=== PATIENT | male | born 1985 | race Caucasian/White ===

== ENCOUNTER 2018-06-22 09:05 | Inpatient (IN) | payer OTHER ==
[~2018-06-22] VITALS: Ht 177.8 cm; Wt 68.0 kg
[~2018-06-22 09:05] MED LIST: ACTIGALL300 MG; PROGRAF1 MG; [UNRECOGNIZED DRUG - OTHER] PO
[2018-06-23] MEDS ORDERED: TAMS0.4C PO (09:48)
== END 2018-06-23 15:41 | disposition home or self-care (01) | DRG 700 ==
LOC: CIR.AMB 09:05 → O/R 15:49 → SURH 16:41
PROVIDERS: ADMIT Urology
PROC: 0T9C8ZZ Drainage of Bladder Neck, Via Natural or Artificial Opening Endoscopic (ICD-10-PCS; principal; 2018-06-22 11:30)
DX: N32.0 Bladder-neck obstruction (principal)